=== PATIENT | male | born 1980 | race Caucasian/White ===

== ENCOUNTER 2020-10-07 19:09 | Emergency (ER) | payer OTHER ==
[~2020-10-07 19:09] MED LIST: ETODOLAC500 MG PO; TESSALON PERLE100 M1 PO
[2020-10-07] MEDS ORDERED: CYCLOBENZAPRINE10 MG PO (20:31)
[2020-10-07] MEDS ORDERED: DICLOFENAC SODI75 MG PO (20:31)
== END 2020-10-07 20:50 | disposition home or self-care (01) ==
LOC: FER 19:09
DX: M54.42 Lumbago with sciatica, left side (principal)
CPT/HCPCS: 72100; 96372; J1040; J1885

== ENCOUNTER 2022-05-13 21:44 | Emergency (ER) | payer OTHER ==
[~2022-05-13 21:44] MED LIST changes: +CYCLOBENZAPRINE10 MG PO; +DICLOFENAC SODI75 MG PO
== END 2022-05-13 23:40 | disposition left against medical advice (07) ==
LOC: FER 21:44
DX: Z53.21 Procedure and treatment not carried out due to patient leaving prior to being seen by health care provider (principal)